=== PATIENT | male | born 1970 | race Caucasian/White ===

== ENCOUNTER 2019-10-23 12:41 | Emergency (ER) | payer MEDICAID ==
[~2019-10-23] VITALS: Ht 162.6 cm; Wt 72.6 kg
[2019-10-23 12:42] VITALS: BP_SYST 108
[2019-10-23] MEDS ORDERED: LIDOCAINE 1% 10 MG/ML, 20 ML MDV INJ ONE (13:00)
[2019-10-23] MEDS ORDERED: CLINDAMYCIN PHOSPHATE 300 MG/2 ML VIAL IM ONE (13:30)
[2019-10-23 13:55] VITALS: BP_SYST 112
== END 2019-10-23 13:55 | disposition home or self-care (01) ==
LOC: SED 12:41
DX: L02.11 Cutaneous abscess of neck (principal)
CPT/HCPCS: 10060; 96372; 99284; J2001; J3490

== ENCOUNTER 2020-03-26 07:24 | Emergency (ER) | payer MEDICAID ==
[~2020-03-26] VITALS: Ht 162.6 cm; Wt 68.0 kg
[2020-03-26 07:35] VITALS: BP_SYST 127
--- NOTE | 2020-03-26 07:35 | NUR ---
Vivian morfin in [facility] - 03/26/20 at 0757 by SDEDDW Patient to ER bed 6 to gilberto for evaluation. Side rails up. Report given to Joan
--- NOTE | 2020-03-26 07:40 | NUR ---
Patient to ER bed 6 to gown for evaluation. Side rails up. Report given to NAIN MEDINA .
--- NOTE | 2020-03-26 07:45 | NUR ---
ELIZ JAVIER at bedside examining patient.
--- NOTE | 2020-03-26 07:50 | NUR ---
Pt came to ER with bilateral neck abscesses swollen and red x1 week. Pt states he uses heroin at this site, last used 4 days ago. Pt resting in [facility], no distress noted, awaiting
[2020-03-26] MEDS: LIDOCAINE 1% 10 MG/ML, 20 ML MDV INJ ONE (08:12)
[2020-03-26] MEDS: cephALEXin 500 MG CAPSULE PO ONE (08:14)
[2020-03-26] MEDS: SULFAMETHOXAZOLE/TRIMETHOPR DS 1 TABLET PO ONE (08:14)
[2020-03-26] MEDS: IBUPROFEN 800 MG TABLET PO ONE (08:17)
[2020-03-26 08:32] VITALS: BP_SYST 120
--- NOTE | 2020-03-26 08:32 | NUR ---
Patient given written and verbal discharge instructions and verbalizes understanding. ER MD discussed with patient the results and treatment provided. Patient in stable condition. ID arm band removed. Rx of IBUPROFEN, KEFLEX & BACTRIM given. Patient educated on pain management and to follow up with PMD. Pain Scale 3/10. Opportunity for questions provided and answered. Medication side effect fact sheet provided.
== END 2020-03-26 08:32 | disposition home or self-care (01) ==
LOC: SED 07:24
DX: L02.11 Cutaneous abscess of neck (principal); F11.90 Opioid use, unspecified, uncomplicated
CPT/HCPCS: 10061; 99284; J2001

== ENCOUNTER 2020-05-04 18:59 | Emergency (ER) | payer MEDICAID ==
[~2020-05-04] VITALS: Ht 162.6 cm; Wt 81.6 kg
[2020-05-04 19:44] VITALS: BP_SYST 121
[2020-05-05] MEDS ORDERED: cefTRIAXone 1 GM in LIDOCAINE 1%, 20 ML MDV 2.1 ML IM ONE (02:00)
[2020-05-05] MEDS ORDERED: ACETAMINOPHEN 500 MG TABLET PO ONE (02:00)
[2020-05-05 02:14] LABS: BASOPHILS # (AUTO) 0.2 K/uL (0.0-0.2); BASOPHILS % (AUTO) 1.3 % (0.0-2.0); EOSINOPHILS # (AUTO) 0.7 K/uL (0.0-0.4); EOSINOPHILS % (AUTO) 5.5 % (0.0-4.0); HEMATOCRIT 36.7 % (36-54); LYMPHOCYTES # (AUTO) 2.5 K/uL (1.0-5.5); LYMPHOCYTES % (AUTO) 19.7 % (20.5-51.5); MEAN CORPUSCULAR HEMOGLOBIN 27 pg (27-31); MEAN CORPUSCULAR HGB CONC 33 % (32-36); MEAN CORPUSCULAR VOLUME 81 fL (79.0-98.0); MONOCYTES % (AUTO) 8.1 % (1.7-9.3); NEUTROPHILS # (AUTO) 8.2 K/uL (1.8-7.7); NEUTROPHILS % (AUTO) 65.4 % (40.0-70.0); PLATELET COUNT (AUTO) 294 K/uL (130-430); RED BLOOD CELL COUNT(AUTO) 4.51 MIL/uL (4.2-6.2); RED CELL DISTRIBUTION WIDTH 16.2 % (9.0-15.0); WHITE BLOOD COUNT (AUTO) 12.5 K/uL (4.8-10.8)
[2020-05-05 03:41] VITALS: BP_SYST 132
== END 2020-05-05 03:41 | disposition home or self-care (01) ==
LOC: SED 18:59
DX: L02.512 Cutaneous abscess of left hand (principal); F11.90 Opioid use, unspecified, uncomplicated; Z88.8 Allergy status to other drugs, medicaments and biological substances
CPT/HCPCS: 36415; 73130; 85025; 86140; 96372; 99284; J0696; J2001